=== PATIENT | male | born 1985 | race Caucasian/White ===

== ENCOUNTER 2018-01-08 18:36 | Inpatient (IN) | payer MEDICAID ==
[~2018-01-08] VITALS: Ht 157.5 cm; Wt 98.0 kg
[2018-01-08 20:02] VITALS: BP 183/109
[2018-01-08 21:04] LABS: BASOPHILS 0.2 % (0-2); EOSINOPHILS 3.4 % (0-7); HEMATOCRIT 39.2 % (42.0-54.0); HEMOGLOBIN 14.6 g/dL (13.5-17.5); IMMATURE GRANULOCYTES 0.4 % (0-5); LYMPHOCYTES 37.9 % (15-50); MCH 30.1 pg (26.0-34.0); MCHC 37.2 g/dL (31.0-37.0); MCV 80.8 fL (80.0-100.0); MEAN PLATELET VOLUME 10.8 fL (7.4-10.4); NEUTROPHILS 53.1 % (40-80); PLATELET COUNT 218 10x3/uL (130-400); RBC 4.85 10x6/uL (4.20-6.10); RDW 13.1 % (11.5-14.5); WBC 5.6 10x3/uL (4.8-10.8)
[2018-01-08 21:20] LABS: ALBUMIN 3.3 g/dL (3.4-5.0); ANION GAP 11.8 mmol/L (8-16); BILIRUBIN - TOTAL 0.36 mg/dL (0.2-1.3); CALCIUM 8.8 mg/dL (8.5-10.1); CARBON DIOXIDE 27.6 mmol/L (21.0-32.0); CREATININE - SERUM 1.4 mg/dL (0.6-1.3); POTASSIUM - SERUM 4.4 mmol/L (3.5-5.1); PROTEIN - SERUM 7.1 g/dL (6.4-8.2)
[2018-01-08 23:59] VITALS: BP 183/109; BMI 39.0
[2018-01-09] VITALS: BP 140/80
[2018-01-09] MEDS ORDERED: LEVEMIR100 U/M1 SC ×2 (03:42→03:44)
[2018-01-09] MEDS ORDERED: COREG 3.1253.125 MG PO (03:47)
[2018-01-09] MEDS ORDERED: NORTRIPTYLINE H50 MG PO (03:49)
[2018-01-09] MEDS ORDERED: NEURONTIN 400400 MG PO (03:49)
[2018-01-09] MEDS ORDERED: HUMULIN R100 U/ML SC (03:50)
[2018-01-09] MEDS ORDERED: OMEPRAZOLE40 MG PO (03:51)
[2018-01-09] MEDS ORDERED: ARTIFICIAL TEAR15 ML EACH EYE (03:53)
[2018-01-09] MEDS ORDERED: ZESTRIL20 MG PO (03:54)
[2018-01-09] MEDS ORDERED: LIPITOR40 MG PO (03:54)
[2018-01-09] MEDS ORDERED: OMNIPRED5 ML EACH EYE (03:57)
[2018-01-09 04:00] VITALS: BP 118/68
[2018-01-09 06:39] LABS: FERRITIN 163 ng/mL (3-244); TRIGLYCERIDE 416 mg/dL (30-200)
[2018-01-09 08:15] VITALS: BP 115/73
[2018-01-09 11:21] VITALS: BP 136/76
[2018-01-09 15:19] VITALS: BP 132/69
[2018-01-09 20:00] VITALS: BP 156/80
[2018-01-10] VITALS: BP 186/95
[2018-01-10 04:00] VITALS: BP 146/87
[2018-01-10 05:16] LABS: BASOPHILS 0.2 % (0-2); EOSINOPHILS 3.5 % (0-7); HEMOGLOBIN 13.5 g/dL (13.5-17.5); IMMATURE GRANULOCYTES 0.7 % (0-5); LYMPHOCYTES 38.7 % (15-50); MCH 29.8 pg (26.0-34.0); MCHC 36.5 g/dL (31.0-37.0); MCV 81.7 fL (80.0-100.0); MEAN PLATELET VOLUME 11.1 fL (7.4-10.4); MONOCYTES 5.7 % (2-11); NEUTROPHILS 51.2 % (40-80); PLATELET COUNT 194 10x3/uL (130-400); RBC 4.53 10x6/uL (4.20-6.10); RDW 13.1 % (11.5-14.5); WBC 5.8 10x3/uL (4.8-10.8)
[2018-01-10 05:32] LABS: ALBUMIN 2.9 g/dL (3.4-5.0); ALKALINE PHOSPHATASE 150 U/L (46-116); ALT (SGPT) 82 U/L (10-68); CALC OSMOLALITY 293 mosm/kg (275-300); CALCIUM 8.7 mg/dL (8.5-10.1); CARBON DIOXIDE 27.5 mmol/L (21.0-32.0); CHLORIDE - SERUM 102 mmol/L (98-107); CREATININE - SERUM 1.1 mg/dL (0.6-1.3); POTASSIUM - SERUM 4.4 mmol/L (3.5-5.1); PROTEIN - SERUM 6.4 g/dL (6.4-8.2); SODIUM 137 mmol/L (136-145); UREA NITROGEN 17 mg/dL (7-18); eGFR NON AFRICAN AMERICAN 81 mL/min (90-120)
[2018-01-10 05:45] LABS: GLUCOSE 416 mg/dL (74-106)
[2018-01-10 08:48] VITALS: BP 131/78
[2018-01-10 10:55] VITALS: Ht 157.5 cm; Wt 98.0 kg
[2018-01-10 11:46] VITALS: BP 140/86
[2018-01-10 16:48] VITALS: BP 143/55
[2018-01-10 20:00] VITALS: BP 172/93
[2018-01-11] VITALS: BP 146/88
[2018-01-11 04:00] VITALS: BP 131/87
[2018-01-11 05:52] LABS: BASOPHILS 0.3 % (0-2); EOSINOPHILS 3.5 % (0-7); HEMATOCRIT 38.8 % (42.0-54.0); HEMOGLOBIN 13.9 g/dL (13.5-17.5); IMMATURE GRANULOCYTES 0.5 % (0-5); LYMPHOCYTES 35.9 % (15-50); MCH 29.8 pg (26.0-34.0); MCHC 35.8 g/dL (31.0-37.0); MCV 83.1 fL (80.0-100.0); MEAN PLATELET VOLUME 11.3 fL (7.4-10.4); MONOCYTES 6.1 % (2-11); NEUTROPHILS 53.7 % (40-80); PLATELET COUNT 204 10x3/uL (130-400); RBC 4.67 10x6/uL (4.20-6.10); RDW 13.2 % (11.5-14.5)
[2018-01-11 05:53] LABS: WBC 7.7 10x3/uL (4.8-10.8)
[2018-01-11 06:16] LABS: ALBUMIN 2.9 g/dL (3.4-5.0); ANION GAP 10.2 mmol/L (8-16); BILIRUBIN - TOTAL 0.4 mg/dL (0.2-1.3); CALCIUM 8.8 mg/dL (8.5-10.1); CARBON DIOXIDE 29.8 mmol/L (21.0-32.0); CREATININE - SERUM 1.2 mg/dL (0.6-1.3); PROTEIN - SERUM 6.4 g/dL (6.4-8.2)
[2018-01-11 08:11] VITALS: BP 124/81
[2018-01-11] MEDS ORDERED: HUMULIN R100 U/ML SC (08:37)
[2018-01-11] MEDS ORDERED: LEVEMIR100 U/M1 SC (08:37)
[2018-01-11 11:40] VITALS: BP 128/79
== END 2018-01-11 15:16 | DRG 639 ==
LOC: D.M2 18:36
PROVIDERS: Family Medicine
DX: E11.65 Type 2 diabetes mellitus with hyperglycemia (principal); E11.40 Type 2 diabetes mellitus with diabetic neuropathy, unspecified; I10 Essential (primary) hypertension; Z87.891 Personal history of nicotine dependence